=== PATIENT | male | born 1960 | race Hispanic/Latino ===

== ENCOUNTER 2022-05-23 10:06 | Outpatient (CLI) | payer OTHER ==
[2022-05-27 23:28] LABS: CD4/CD8 Ratio 1.43 (0.86-5.00)
== END 2022-05-23 10:07 | disposition home or self-care (01) ==
LOC: LAB 10:06
PROVIDERS: ATTEND Internal Medicine
DX: Z02.71 Encounter for disability determination (principal)
CPT/HCPCS: 36415; 82024